=== PATIENT | male | born 1965 | race African-American/Black ===

== ENCOUNTER 2017-06-16 09:38 | Emergency (ER) | payer SELFPAY ==
[~2017-06-16] VITALS: Ht 175.3 cm; Wt 81.6 kg
[2017-06-16 09:43] VITALS: BP_SYST 125
[2017-06-16 10:10] VITALS: BP_SYST 125
== END 2017-06-16 10:10 ==
LOC: SED 09:38
DX: S53.401A Unspecified sprain of right elbow, initial encounter (principal); X58.XXXA Exposure to other specified factors, initial encounter; Y93.89 Activity, other specified; Y92.89 Other specified places as the place of occurrence of the external cause; Y99.8 Other external cause status
CPT/HCPCS: 99284